=== PATIENT | male | born 1960 | race Caucasian/White ===

== ENCOUNTER → 2021-12-15 | Outpatient (CLI) | payer BC ==
--- NOTE | 2021-12-15 16:36 | US ---
EXAMINATION TYPE: US bladder DATE OF EXAM: 12/15/2021 COMPARISON: NONE CLINICAL HISTORY: R35.0 FREQUENCY OF MICTURITION. Pt states frequency in urination TECHNIQUE: Multiple sonographic images of the bladder are obtained. FINDINGS: EXAM MEASUREMENTS: Post Void Residual Volume: 26 mL FIG CAPRIFIER NOTES: Color Doppler performed to assess ureteral jets. Bilateral Jets seen: No Normal Post Void Residual (less than 50ml): Yes Incidental finding enlarged prostate IMPRESSION: 1. Prominent prostate. 2. No discrete abnormality of the urinary bladder.
== END | disposition home or self-care (01) ==
LOC: RADUSWWP 14:10
PROVIDERS: ATTEND Family Medicine
DX: R35.0 Frequency of micturition (principal)
CPT/HCPCS: 76857